=== PATIENT | male | born 1960 | race Caucasian/White ===

== ENCOUNTER → 2022-07-28 14:22 | Outpatient (BNVA) | payer OTHER, SELFPAY | PROVIDERS: Visit Provider Internal Medicine | DX: M75.101 Unspecified rotator cuff tear or rupture of right shoulder, not specified as traumatic (principal) | CPT/HCPCS: 73030; 99203 ==

== ENCOUNTER → 2022-08-07 13:53 | Outpatient (BNVA) | payer OTHER, SELFPAY | PROVIDERS: Visit Provider Internal Medicine | DX: M75.101 Unspecified rotator cuff tear or rupture of right shoulder, not specified as traumatic (principal) | CPT/HCPCS: 99213 ==

== ENCOUNTER → 2022-08-22 13:58 | Outpatient (BNVA) | payer OTHER, SELFPAY | PROVIDERS: Visit Provider Internal Medicine | DX: M75.101 Unspecified rotator cuff tear or rupture of right shoulder, not specified as traumatic (principal) | CPT/HCPCS: 99213 ==

== ENCOUNTER → 2023-05-13 09:29 | Outpatient (BNVA) | payer OTHER, SELFPAY | PROVIDERS: Visit Provider Physician Assistant Medical | DX: S80.02XA Contusion of left knee, initial encounter (principal); S80.212A Abrasion, left knee, initial encounter; W01.0XXA Fall on same level from slipping, tripping and stumbling without subsequent striking against object, initial encounter | CPT/HCPCS: 99203 ==

== ENCOUNTER → 2023-05-19 13:00 | Outpatient (BNVA) | payer OTHER, SELFPAY | PROVIDERS: Visit Provider Physician Assistant Medical | DX: S80.02XA Contusion of left knee, initial encounter (principal); S80.212A Abrasion, left knee, initial encounter; W01.0XXA Fall on same level from slipping, tripping and stumbling without subsequent striking against object, initial encounter | CPT/HCPCS: 99213 ==

== ENCOUNTER 2023-06-10 19:31 | Outpatient (REF) | payer OTHER, SELFPAY ==
--- NOTE | ~2023-06-10 | MR_ITS ---
EXAMINATION: MR KNEE WITHOUT CONTRAST, LEFT CLINICAL INFORMATION: Left knee pain and swelling following a twisting injury on 05/13/2023. Remote arthroscopic surgery. COMPARISON: Left knee radiographs dated 05/13/2023. TECHNIQUE: MRI of the knee without contrast was performed using routine sequences on a high-field scanner. FINDINGS: MENISCI: Medial Meniscus: Inner margin and tibial articular surface tear of the meniscal body with an inferomedially displaced meniscal flap measuring up to 1.8 cm within the medial meniscotibial recess. Oblique tearing extends along the inner margin and tibial articular surface of the posterior horn with inner margin fraying of the posterior root. Lateral Meniscus: Nondisplaced oblique inner margin and tibial articular surface tear of the meniscal body with extension into the anterior and posterior horns. LIGAMENTS: Cruciate: Intact Collateral: Edema adjacent to the periphery of the medial collateral ligament consistent with an acute grade 1 sprain/partial tear. Intact fibular collateral ligament. EXTENSOR MECHANISM: Intact ARTICULAR CARTILAGE/BONE: Patellofemoral Compartment: Mild patellar articular cartilage signal heterogeneity with tiny marginal osteophytes. Medial Compartment: Articular cartilage signal heterogeneity with focal full-thickness loss measuring up to 0.5 cm in ML dimension. Mild subchondral cystic change. Tiny marginal osteophytes. Lateral Compartment: Intact articular cartilage. 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 No edema or evidence of acute injury. JOINT FLUID AND BURSAE: Trace joint effusion and trace Barbour's cyst. MR/MR knee LT wo con IMPRESSION: 1. Inner margin and tibial articular surface tearing of the medial meniscal body with an inferomedially displaced meniscal flap measuring up to 1.8 cm. Oblique tearing extends along the inner margin and tibial articular surface of the posterior horn with inner margin fraying of the posterior root. 2. Nondisplaced oblique inner margin and tibial articular surface tear of the lateral meniscal body with extension into the anterior and posterior horns. 3. Acute grade 1 sprain/partial tear of the medial collateral ligament. 4. Mild patellofemoral and medial compartment osteoarthritis. Trace joint effusion and trace Barbour's cyst.
== END 2023-06-10 19:32 | disposition home or self-care (01) ==
LOC: HO.MRI 19:31
PROVIDERS: PCP Internal Medicine; Visit Provider Internal Medicine
DX: M25.562 Pain in left knee (principal); Z91.81 History of falling; R53.1 Weakness
CPT/HCPCS: 73721

== ENCOUNTER 2023-07-02 12:41 | Outpatient (REF) | payer OTHER, SELFPAY ==
--- NOTE | ~2023-07-02 | XR_ITS ---
EXAMINATION: XR KNEE STANDING, BILATERAL XR KNEE, RIGHT CLINICAL INDICATION: Pain. COMPARISON: Comparison is made to previous exam dated 05/13/2023. TECHNIQUE: Bilateral knees AP standing. Right knee two views. FINDINGS: Once again meniscal calcifications are seen on the left with tibial spine spurring. Some loss of joint space medially and laterally is once again seen. On the right meniscal calcifications are felt to be present as well. Some tibial spine spurring as well. Some mild loss of medial and lateral joint space. The tibia is fairly well seated on the sunrise image. No acute fracture or dislocation. There appears to be sclerosis involving the distal femur at the articulation of the tibia in the lateral compartment. Uncertain etiology. XR/XR knee standing BI IMPRESSION: Left knee appearance is similar to previous. Degenerative change with meniscal calcifications. On the right I feel we are also seeing some degenerative change and meniscal calcifications as described. In addition a generalized area of sclerosis involving the lateral aspect of the femur distally near the articulation. This could be degenerative in nature. I would recommend MR to fully evaluate. An underlying bony lesion or area of significant osteochondral injury could not be excluded.
--- NOTE | ~2023-07-02 | XR_ITS ---
EXAMINATION: XR KNEE STANDING, BILATERAL XR KNEE, RIGHT CLINICAL INDICATION: Pain. COMPARISON: Comparison is made to previous exam dated 05/13/2023. TECHNIQUE: Bilateral knees AP standing. Right knee two views. FINDINGS: Once again meniscal calcifications are seen on the left with tibial spine spurring. Some loss of joint space medially and laterally is once again seen. On the right meniscal calcifications are felt to be present as well. Some tibial spine spurring as well. Some mild loss of medial and lateral joint space. The tibia is fairly well seated on the sunrise image. No acute fracture or dislocation. There appears to be sclerosis involving the distal femur at the articulation of the tibia in the lateral compartment. Uncertain etiology. XR/XR knee RT 2V IMPRESSION: Left knee appearance is similar to previous. Degenerative change with meniscal calcifications. On the right I feel we are also seeing some degenerative change and meniscal calcifications as described. In addition a generalized area of sclerosis involving the lateral aspect of the femur distally near the articulation. This could be degenerative in nature. I would recommend MR to fully evaluate. An underlying bony lesion or area of significant osteochondral injury could not be excluded.
== END 2023-07-02 12:42 | disposition home or self-care (01) ==
LOC: HO.HOSX 12:41
PROVIDERS: PCP Internal Medicine; Visit Provider Orthopaedic Surgery
DX: M17.11 Unilateral primary osteoarthritis, right knee (principal)
CPT/HCPCS: 73560; 73565

== ENCOUNTER 2023-07-02 12:41 | Outpatient (AMB) | payer OTHER, SELFPAY ==
--- NOTE | 2023-07-02 12:43 | MHC.OFFVIS ---
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 Patient reports that he has had ongoing right knee pain for about 3 months now. He has history of a fall about 18 years ago where he landed on the pavement, during this fall he tore his meniscus which was operated on by Dr. Christian. He feels his pain mostly with walking and with initiation of gait after sitting for a prolonged period of time. No hx of cortisone in the right knee. He takes Ibuprofen for his pain which gives mild releif. Allergies No Known Allergies Allergy (Verified 07/02/23 13:01) HPI Sterilization Technician- Right knee pain HPI Details Jose is a 63 year old man who presents with complaints of right knee pain. He complains of pain with walking or standing from a seated position. He says this pain began ~3 months ago, but he fell and tore his meniscus in ~2004. His meniscus was repaired by Dr. Christian. He denies any injections in his right knee, and takes Ibuprofen with some relief. He says he was told by his doctor that he had AVN in his knee. He had an MRI performed on his left knee after his fall at work on 05/03/23, not his right knee. That is a workers comp injury and he says he is receiving treatment for his left knee. [facility] Surgical History (Updated 07/02/23 @ 13:02 by Becky Mejía CMA) H/O right knee surgery Social History (Updated 07/02/23 @ 13:02 by Becky Mejía CMA) Current occupational status: employed Current occupation: R[employer] Observation Review of Systems Const All systems reviewed & are unremarkable except as noted in HPI and below Physical Exam Const General: no acute distress, alert and awake Orientation/consciousness: patient oriented x3 HEENT Head: Yes normocephalic and Yes atraumatic Eyes EOM: EOMs intact bilaterally Resp Effort & Inspection: normal respiratory effort and able to speak in complete sentences Cardio Jugular venous distension: no JVD Skin General skin exam: turgor normal Rashes: no rashes Neuro General: patient oriented x3 Extrem Other: Right Knee: Unremarkable exam Psych Appearance: grossly normal Affect: normal affect Attitude: cooperative Results Reviewed Results Reviewed: I personally reviewed relevant MR images Assessment & Plan Assessment & Plan (1) Osteoarthritis of right knee: Code(s): M17.11 - Unilateral primary osteoarthritis, right knee Plan: This is a 63 year old man with right knee OA, with a hx of meniscus repair in ~2004. He has pain with daily activity, worse with standing from a seated position or ambulation. I discussed his diagnosis and treatment options. His pain is tolerable and I think his focus should be on managing his left knee workers comp injury. No acute intervention warranted. He can follow up prn. Plan Scribed for Manjit Guo MD by Binu Morris, medical device engineer, on 07/02/23 at 1:10 PM, EST. Orders: Orders XR knee standing BI 07/02/23 M25.569 - Pain in unspecified knee XR knee RT 2V 07/02/23 M25.569 - Pain in unspecified knee Coding Level of Care Code New Pt Level 3 (04376) Diagnoses Osteoarthritis of right knee M17.11
== END 2023-07-02 13:54 | disposition home or self-care (01) ==
PROVIDERS: PCP Internal Medicine; Visit Provider Orthopaedic Surgery
DX: M17.11 Unilateral primary osteoarthritis, right knee (principal)
CPT/HCPCS: 99203

== ENCOUNTER → 2025-04-21 11:09 | Outpatient (BNVA) | payer OTHER, SELFPAY | PROVIDERS: PCP Internal Medicine; Visit Provider Physician Assistant | DX: S46.911A Strain of unspecified muscle, fascia and tendon at shoulder and upper arm level, right arm, initial encounter (principal); X50.0XXA Overexertion from strenuous movement or load, initial encounter | CPT/HCPCS: 73030; 99204 ==

== ENCOUNTER → 2025-05-03 13:57 | Outpatient (BNVA) | payer OTHER, SELFPAY | PROVIDERS: PCP Internal Medicine; Visit Provider Physician Assistant | DX: S46.911D Strain of unspecified muscle, fascia and tendon at shoulder and upper arm level, right arm, subsequent encounter (principal); X50.0XXD Overexertion from strenuous movement or load, subsequent encounter; Z02.79 Encounter for issue of other medical certificate | CPT/HCPCS: 99213 ==